=== PATIENT | female | born 1975 | race Caucasian/White ===

== ENCOUNTER 2022-08-08 08:54 | Outpatient (CLI) | payer MEDICARE, MEDICAID, SELFPAY ==
--- NOTE | 2022-08-08 09:15 | MR_ITS ---
[address] [address] Phone:?[phone] Fax:?[phone] Referring Physician Information: Ld Bailon M.D. [id number] [facility] [address] Phone:?[phone] Fax:?[phone] Patient:Hubert Mario D.O.B:?1975 Sex:?Female Phone:?[phone] [facility] MRN:?[id number] Exam Date:?08/08/2022 ? EXAM: MRI of the RIGHT KNEE, without contrast CLINICAL INFORMATION: Female, 47 years old, with right knee pain. INDICATION: Evaluate for internal derangement. PRIOR SURGERY: None reported. PLAIN FILMS: Knee radiographs dated 09/28/2021. COMPARISONS: No prior MRIs available. TECHNICAL INFORMATION: Using a 1.5T MR scanner and a localizing surface coil: sagittals: PD, PDFS coronals: PD, STIR axials: PD, T2FS SEDATION: None CONTRAST: None FINDINGS: Knee joint: Effusion: Moderate right knee effusion, with synovitis. Popliteal cyst: Small, unruptured popliteal (Chaudhari's) cyst. Loose bodies: None. Subcutaneous and extra-articular soft tissues: Unremarkable. Ligaments: ACL: Moderate-marked thickening and abnormal intrasubstance signal throughout the ACL, without ACL tear (sagittal PDFS series 6 images 14 & 15 and coronal STIR series 8 images 12-15). PCL: Intact PCL, without acute or chronic injury. Subcortical cystic change is incidentally noted in the femur adjacent to the PCL attachment. MCL: Intact MCL superficial and deep layers, without injury. LCL: Intact LCL, without injury. Posterolateral corner: No posterolateral corner soft tissue injury. Popliteus, biceps femoris, iliotibial band, popliteofibular ligament and lateral gastrocnemius are intact. Posteromedial corner: No posteromedial corner soft tissue injury. Semimembranosus, pes anserine tendons and posterior oblique ligament are without injury, tendinopathy or bursitis. Extensor mechanism: Patellar tendon: Intact, without tendinopathy. Quadriceps tendon: Intact, without tendinopathy. Retinacula: Medial and lateral retinacula are intact. Fat pads: Infrapatellar: Mild to moderate edema is present in the superolateral aspect of Hoffa's fat pad. Quadriceps: Normal. Prefemoral: Normal. Insall-Salvati index (SOHA): 1.34 (normal 1.0 +/- 0.2; abnormal > 1.2). Tristian-Beatrice index: 1.04 (normal 1.0 +/- 0.2: abnormal > 1.2). Patellotrochlear index: 0.19 (range 0.18 - 0.80). Wiberg patellar type: Type II, with 2 mm of lateral subluxation (axial PD series 3 image 10) TT-TG distance (mm): 19 (normal < 15, borderline abnormal 15-20, Abnormal > 20). Trochlear sulcus angle: 153? (normal <= 144?) Trochlear inclination angle: 9? (normal >= 11?) Medial compartment: Medial meniscus: No articular surface, meniscosynovial junction or root tear. No displacement, extrusion or parameniscal cyst. Medial femoral condyle: Broad-based mild grade II chondromalacia throughout the central surface of the medial femoral condyle, mild reactive osseous changes and marginal osteophytosis. Medial tibial plateau: Mild grade II chondromalacia is present along the medial aspect of the medial tibial plateau. Lateral compartment: Lateral meniscus: Intrasubstance degeneration is present within the anterior and posterior roots of the lateral meniscus, without discrete lateral meniscal tearing. Lateral femoral condyle & tibial plateau: Mild signal heterogeneity, surface irregularity, and thinning of the articular cartilage without full-thickness chondral loss or reactive osseous changes. Patellofemoral joint: Patella: Broad-based grade III/IV chondromalacia of the patella, with mild/moderate marginal osteophytosis and mild reactive osseous changes. Trochlea: Broad-based grade IV chondromalacia along the superior aspect of the lateral trochlear facet. Proximal tibiofibular joint: Unremarkable, without evidence of ligament sprain injury, joint effusion or adjacent marrow edema. Bones: No stress/occult fractures or other marrow edema/pathology. IMPRESSION: 1. Moderate-marked osteoarthritis of the patellofemoral compartment. 2. Mild patella willem with decreased patellofemoral overlap, 12 mm of lateral patellar subluxation, borderline abnormal TT-TG distance (19 mm), and mild- moderate trochlear dysplasia. These findings may predispose to patellofemoral maltracking. 3. Patellar tendon lateral femoral condyle friction syndrome. 4. Minimal osteoarthritis of the medial compartment. 5. Moderate-marked mucinous degeneration of the ACL, without tear. 6. Moderate knee joint effusion with synovitis and a small, unruptured popliteal (Chaudhari's) cyst. 7. No discrete medial or lateral meniscal tear. 8. No PCL, MCL, or LCL sprain/tear. BC Electronically signed on 08/08/2022 5:02:00 PM by Poli Chapa M.D.
== END 2022-08-08 08:55 | disposition home or self-care (01) ==
LOC: MRI 08:56
PROVIDERS: PCP Nurse Practitioner Family; Visit Provider Orthopaedic Surgery Sports Medicine
DX: M25.561 Pain in right knee (principal); M25.461 Effusion, right knee; M71.21 Synovial cyst of popliteal space [Baker], right knee; M23.91 Unspecified internal derangement of right knee
CPT/HCPCS: 73721